=== PATIENT | male | born 1945 | race Caucasian/White ===

== ENCOUNTER 2020-06-02 09:56 | Emergency (ER) | payer MEDICARE, MEDICAID ==
[~2020-06-02] VITALS: Ht 157.5 cm; Wt 65.0 kg
[2020-06-02 11:38] LABS: EOSINOPHILS % 0.6 % (0.0-5.0); HEMATOCRIT. 40.9 % (42.0-52.0); HEMOGLOBIN. 13.1 g/dL (14.0-18.0); LYMPHOCYTES % 16.2 % (20.0-50.0); MEAN CORPUSCULAR VOLUME 84.2 fL (80.0-94.0); MEAN PLATELET VOLUME 9.5 fl (7.4-10.4); MONOCYTES % 8.3 % (2.0-8.0); NEUTROPHILS % 73.9 % (40.0-76.0); PLATELET 206 x1000/uL (130-400); RED BLOOD CELL COUNT 4.86 mill/uL (4.7-6.1); RED CELL DISTRIBUTION WIDTH 20.5 % (11.6-14.6)
[2020-06-02 11:45] LABS: CHLORIDE 106 mEq/L (98-107)
[2020-06-02 11:50] LABS: CLARITY URINE CLEAR (CLEAR); COLOR URINE YELLOW (YELLOW); KETONES URINE 1+ (NEGATIVE); LEUKOCYTE ESTERASE URINE NEGATIVE (NEGATIVE); NITRITE URINE NEGATIVE (NEGATIVE); OCCULT BLOOD URINE NEGATIVE (NEGATIVE); PROTEIN URINE NEGATIVE (NEGATIVE); SPECIFIC GRAVITY URINE 1.011 (1.005-1.030)
[2020-06-02] MEDS ORDERED: ONDANSETRON HCL 4MG/2ML INJ IV STA (12:04)
[2020-06-02] MEDS ORDERED: FAMOTIDINE 20MG/2ML VIAL IV STA (12:04)
[2020-06-02] MEDS ORDERED: MORPHINE SULFATE 4 MG/ML CPJ (NOT FOR IM USE) IV STA (12:04)
[2020-06-02] MEDS ORDERED: SODIUM CHLORIDE 0.9% 1,000 ML IV ONE (12:15)
[2020-06-02 12:37] LABS: INR 1.1; PROTHROMBIN TIME 11.5 sec (9.6-11.0)
[2020-06-02] MEDS ORDERED: PROT20 MT (12:53)
[2020-06-02] MEDS ORDERED: POLY17PO3 MT (12:53)
[2020-06-02 13:54] VITALS: BP 130/78
[2020-06-03] MEDS ORDERED: FAMO-135 PO (22:48)
== END 2020-06-02 13:55 | disposition home or self-care (01) ==
LOC: ER 09:56
DX: R10.9 Unspecified abdominal pain (principal); K44.9 Diaphragmatic hernia without obstruction or gangrene; K59.00 Constipation, unspecified
CPT/HCPCS: 36415; 74176; 80053; 81003; 83690; 84484; 85025; 85610; 93005; 96374; 96375; 99285; J2270; J2405; J3490; J7030

== ENCOUNTER 2020-06-03 21:38 | Emergency (ER) | payer MEDICARE, MEDICAID ==
[~2020-06-03 21:38] MED LIST: POLY17PO3 MT; PROT20 MT
[2020-06-03 22:15] VITALS: BP 173/81
[2020-06-03] MEDS ORDERED: FAMO-135 PO (22:48)
== END 2020-06-03 23:25 | disposition home or self-care (01) ==
LOC: ER 21:38
DX: R10.9 Unspecified abdominal pain (principal)
CPT/HCPCS: 99282

== ENCOUNTER 2020-06-29 23:56 | Emergency (ER) | payer MEDICARE, MEDICAID ==
[~2020-06-29] VITALS: Ht 165.1 cm; Wt 64.0 kg
[~2020-06-29 23:56] MED LIST changes: +FAMO-135 PO
[2020-06-30] MEDS ORDERED: HYDROCODONE/ACETAMINOPHEN 5/325MG TABLET PO STA (00:26)
[2020-06-30] MEDS ORDERED: IBUPROFEN 600MG TABLET PO STA (00:26)
[2020-06-30] MEDS ORDERED: CLOT24CR TP (00:28)
[2020-06-30] MEDS ORDERED: CEPH500T MT (00:28)
[2020-06-30] MEDS ORDERED: CEPHALEXIN 250MG CAPSULE PO ONE (00:30)
[2020-06-30 02:10] LABS: CLARITY URINE CLOUDY (CLEAR); COLOR URINE ORANGE (YELLOW); KETONES URINE 1+ (NEGATIVE); LEUKOCYTE ESTERASE URINE 3+ (NEGATIVE); NITRITE URINE NEGATIVE (NEGATIVE); OCCULT BLOOD URINE 3+ (NEGATIVE); PH URINE 5.5 (4.5-8.0); PROTEIN URINE 2+ (NEGATIVE); UROBILINOGEN URINE 0.2 E.U./dL (0.2-1.0)
[2020-06-30 06:25] VITALS: BP 145/70
== END 2020-06-30 06:29 | disposition home or self-care (01) ==
LOC: ER 23:56
DX: N39.0 Urinary tract infection, site not specified (principal); R33.9 Retention of urine, unspecified; N48.1 Balanitis; Z87.440 Personal history of urinary (tract) infections
CPT/HCPCS: 81003; 87077; 87186; 93005; 99284

== ENCOUNTER 2020-07-05 13:07 | Emergency (ER) | payer MEDICARE, MEDICAID ==
[~2020-07-05] VITALS: Ht 160 cm; Wt 51.0 kg
[~2020-07-05 13:07] MED LIST changes: +CEPH500T MT; +CLOT24CR TP
[2020-07-05 13:31] VITALS: BP 108/87
[2020-07-05] MEDS ORDERED: DIPHENHYDRAMINE 50MG CAPSULE PO ONE (14:00)
[2020-07-05] MEDS ORDERED: PREDNISONE 20MG TABLET PO ONE (14:00)
[2020-07-05] MEDS ORDERED: B50 GT (15:10)
[2020-07-05] MEDS ORDERED: CEPH500T MT (15:10)
== END 2020-07-05 15:24 | disposition home or self-care (01) ==
LOC: ER 13:37
DX: L29.9 Pruritus, unspecified (principal); T78.8XXA Other adverse effects, not elsewhere classified, initial encounter; Z79.899 Other long term (current) drug therapy; X58.XXXA Exposure to other specified factors, initial encounter
CPT/HCPCS: 99283; J7512; Q0163